=== PATIENT | female | born 1990 | race Caucasian/White ===

== ENCOUNTER 2017-04-08 21:31 | Emergency (ER) | payer SELFPAY ==
[2017-04-08] MEDS ORDERED: AMOX125 (21:44)
[2017-04-08] MEDS ORDERED: PERCOCET 325 MG1 TA2 PO (22:44)
[2017-04-08 22:51] VITALS: BP 140/89
== END 2017-04-08 22:51 | disposition home or self-care (01) ==
LOC: ED 21:31
DX: K04.7 Periapical abscess without sinus (principal); K12.2 Cellulitis and abscess of mouth

== ENCOUNTER 2018-05-15 12:12 | Emergency (ER) | payer BC ==
[~2018-05-15 12:12] MED LIST: AMOX125; PERCOCET 325 MG1 TA2 PO
[2018-05-15 13:19] LABS: EOS # 0.1 (0.04-0.40); HEMATOCRIT 39.8 % (37.0-47.0); HEMOGLOBIN 13.2 g/dL (12.5-16.0); LYMPH# 1.7 (1.50-4.00); MEAN CELL VOLUME 91 fl (78-100); MEAN CORPUSCULAR HEMOGLOBIN 30 pg (27-31); MEAN CORPUSCULAR HGB CONC 33 g/dL (33-37); MONO # 0.5 (0.20-0.80); NEU # 4.9 (1.40-6.50); PLATELET COUNT 289 K/mm3 (130-400); RED BLOOD COUNT 4.37 M/mm3 (4.10-5.30); RED CELL DISTRIBUTION WIDTH 12.8 % (11.5-14.5); WHITE BLOOD COUNT 7.2 K/mm3 (4.8-10.8)
[2018-05-15 13:30] LABS: ALBUMIN 4.1 g/dL (3.5-5.0); CALCIUM 8.8 mg/dL (8.4-10.2); POTASSIUM 3.7 mmol/L (3.6-5.0); TOTAL BILIRUBIN 0.6 mg/dL (0.2-1.3); TOTAL PROTEIN 7.3 g/dL (6.3-8.2)
[2018-05-15 13:37] LABS: URINE APPEARANCE HAZY; URINE BILIRUBIN NEGATIVE (NEGATIVE); URINE BLOOD NEGATIVE (NEGATIVE); URINE COLOR YELLOW; URINE GLUCOSE NEGATIVE (NEGATIVE); URINE KETONE NEGATIVE (NEGATIVE); URINE LEUKOCYTE ESTERASE NEGATIVE (NEGATIVE); URINE NITRATE NEGATIVE (NEGATIVE); URINE PROTEIN(semi-quant) NEGATIVE (NEGATIVE); URINE UROBILINOGEN NORMAL (NORMAL); URINE WBC 0-1 /hpf (0-3)
[2018-05-15] MEDS ORDERED: ZOFRAN4 M2 PO (14:17)
[2018-05-15 14:44] VITALS: BP 138/84
== END 2018-05-15 14:43 | disposition home or self-care (01) ==
LOC: ED 12:12
PROVIDERS: Nurse Practitioner Primary Care
DX: R10.13 Epigastric pain (principal); Z90.49 Acquired absence of other specified parts of digestive tract
CPT/HCPCS: J2270; J2405; J7030

== ENCOUNTER 2019-02-27 17:44 | Emergency (ER) | payer SELFPAY ==
[~2019-02-27] VITALS: Ht 167.6 cm; Wt 109.1 kg
[~2019-02-27 17:44] MED LIST changes: +ZOFRAN4 M2 PO
[2019-02-27] MEDS ORDERED: MULTI-VITAMINS1 TA1 PO (18:19)
[2019-02-27 18:50] LABS: EOS # 0.3 (0.04-0.40); EOS % 2.2 % (1.0-5.0); HEMATOCRIT 39.9 % (37.0-47.0); HEMOGLOBIN 13.4 g/dL (12.5-16.0); LYMPH# 2.7 (1.50-4.00); MEAN CELL VOLUME 92 fl (78-100); MEAN CORPUSCULAR HEMOGLOBIN 31 pg (27-31); MEAN CORPUSCULAR HGB CONC 34 g/dL (33-37); MEAN PLATELET VOLUME 10.7 fl (7.4-10.4); MONO # 0.7 (0.20-0.80); NEU # 7.5 (1.40-6.50); PLATELET COUNT 406 K/mm3 (130-400); RED BLOOD COUNT 4.34 M/mm3 (4.10-5.30); RED CELL DISTRIBUTION WIDTH 11.9 % (11.5-14.5); WHITE BLOOD COUNT 11.2 K/mm3 (4.8-10.8)
[2019-02-27] MEDS ORDERED: GUAIFEN-CODEINE5 ML PO (19:29)
[2019-02-27 19:45] VITALS: BP 151/98
== END 2019-02-27 19:45 | disposition home or self-care (01) ==
LOC: ED 17:44
PROVIDERS: Family Medicine
DX: J06.9 Acute upper respiratory infection, unspecified (principal)

== ENCOUNTER 2020-11-26 02:53 | Emergency (ER) | payer BC ==
[~2020-11-26] VITALS: Ht 167.6 cm; Wt 127.3 kg
[~2020-11-26 02:53] MED LIST changes: +GUAIFEN-CODEINE5 ML PO; +MULTI-VITAMINS1 TA1 PO
[2020-11-26] MEDS ORDERED: FLUOXETINE90 MG PO (03:17)
[2020-11-26] MEDS ORDERED: AMBIEN CR12.5 MG PO (03:18)
[2020-11-26] MEDS ORDERED: ADDERALL XR30 MG PO (03:18)
[2020-11-26] MEDS ORDERED: PROPRANOLOL HCL20 M2 PO (03:21)
[2020-11-26] MEDS ORDERED: SAXENDA3 MG/0.5 M SQ (04:09)
[2020-11-26 04:20] VITALS: BP 138/99
== END 2020-11-26 04:20 | disposition home or self-care (01) ==
LOC: ED 02:53
DX: S93.402A Sprain of unspecified ligament of left ankle, initial encounter (principal); W10.8XXA Fall (on) (from) other stairs and steps, initial encounter
CPT/HCPCS: J1885; L4386

== ENCOUNTER → 2020-12-12 | Outpatient (CLI) | payer BC ==
[~2020-12-12] MED LIST changes: +ADDERALL XR30 MG PO; +AMBIEN CR12.5 MG PO; +FLUOXETINE90 MG PO; +PROPRANOLOL HCL20 M2 PO; +SAXENDA3 MG/0.5 M SQ
== END ==
LOC: LAB 14:47
DX: J02.9 Acute pharyngitis, unspecified (principal)

== ENCOUNTER → 2022-02-06 | Outpatient (CLI) | payer BC ==
[~2022-02-06] MED LIST changes: +PROZAC40 M1 PO
== END ==
LOC: LAB 13:10
DX: U07.1 COVID-19 (principal)